=== PATIENT | male | born 1990 | race Asian ===

== ENCOUNTER 2024-04-06 00:04 | Emergency (ER) | payer OTHER ==
[~2024-04-06] VITALS: Ht 167.6 cm; Wt 77.1 kg
[2024-04-06 01:08] LABS: BASOPHILS # (AUTO) 0.1 K/uL (0.0-0.2); BASOPHILS % (AUTO) 0.5 % (0.0-2.0); EOSINOPHILS # (AUTO) 0.5 K/uL (0.0-0.7); EOSINOPHILS % (AUTO) 3.6 % (0.0-6.0); HEMATOCRIT 42 % (39-51); HEMOGLOBIN 14.2 g/dL (13.5-17.5); LYMPHOCYTES # (AUTO) 2.6 K/uL (0.8-4.8); LYMPHOCYTES % (AUTO) 19.3 % (20.0-44.0); MEAN CORPUSCULAR HEMOGLOBIN 31 PG (26.0-33.0); MEAN CORPUSCULAR HGB CONC 34 g/dl (31.0-36.0); MEAN CORPUSCULAR VOLUME 93 fL (80-96); MONOCYTES # (AUTO) 1.4 K/uL (0.1-1.30); MONOCYTES % (AUTO) 10.2 % (2.0-12.0); NEUTROPHILS % (AUTO) 66.4 % (43.0-81.0); PLATELET COUNT (AUTO) 265 K/uL (150-450); RED BLOOD CELL COUNT(AUTO) 4.52 MIL/uL (4.5-6.0); RED CELL DISTRIBUTION WIDTH 13.1 % (11.5-15.0); WHITE BLOOD COUNT (AUTO) 13.6 K/uL (4.3-11.0)
[2024-04-06 01:20] LABS: CALCIUM, SERUM 8.7 mg/dL (8.5-10.1); CREATININE 1.3 mg/dL (0.6-1.3); POTASSIUM 3.6 mmol/L (3.5-5.1)
[2024-04-06] MEDS: ALBUTEROL FS 2.5 MG/3 ML VIAL.NEB NEB ONE (01:54)
[2024-04-06] MEDS ORDERED: ALBUTEROL FS 2.5 MG/3 ML VIAL.NEB ONE (01:54)
[2024-04-06 01:59] VITALS: O2SAT 96
[2024-04-06 02:14] VITALS: O2SAT 98
[2024-04-06] MEDS ORDERED: FUROSEMIDE 40 MG/4 ML VIAL ONE (03:01)
[2024-04-06] MEDS: FUROSEMIDE 40 MG/4 ML VIAL IV ONE (03:14)
[2024-04-06] MEDS ORDERED: ALBU18HF2 INH (04:26)
[2024-04-06] MEDS ORDERED: FURO-144 PO (04:26)
[2024-04-06 04:35] VITALS: BP 122/79; TEMP 98.1; O2SAT 95
== END 2024-04-06 04:36 | disposition home or self-care (01) ==
LOC: ER 00:08
DX: R06.02 Shortness of breath (principal); Z87.09 Personal history of other diseases of the respiratory system
CPT/HCPCS: 99285; 96374; 71045; 85025; 80048; 36415; 83880; 94640; J1940